=== PATIENT | male | born 1960 | race Caucasian/White ===

== ENCOUNTER 2020-09-10 10:38 | Emergency (ER) | payer OTHER ==
[~2020-09-10 10:38] MED LIST: ASPIRIN EC81 MG PO; BENADRYL 25MG C25 MG PO; CINNAMON500 MG PO; GLUCOPHAGE500 MG PO; HYDROCODON-ACE1 EAC2 PO; LEVAQUIN500 MG PO; NORCO 10-325 T1 EACH PO; OMEGA-3100 MG PO; VALIUM 10 MG TA10 MG PO; VIBRAMYCIN100 MG PO; VITAMIN C 500500 MG PO; VITAMIN D-32000 UNI1 PO; ZANTAC150 MG PO
[2020-09-10] MEDS ORDERED: CYCLOBENZAPRINE10 MG PO (13:10)
== END 2020-09-10 13:42 | disposition home or self-care (01) ==
LOC: ER1 10:38
DX: S16.1XXA Strain of muscle, fascia and tendon at neck level, initial encounter (principal); M48.56XA Collapsed vertebra, not elsewhere classified, lumbar region, initial encounter for fracture; J45.909 Unspecified asthma, uncomplicated; E11.9 Type 2 diabetes mellitus without complications; Z88.0 Allergy status to penicillin; Z91.040 Latex allergy status; Z88.8 Allergy status to other drugs, medicaments and biological substances; V49.40XA Driver injured in collision with unspecified motor vehicles in traffic accident, initial encounter; Y92.410 Unspecified street and highway as the place of occurrence of the external cause
CPT/HCPCS: 72125; 72131; 73030; 73130; 73564; 99284